=== PATIENT | male | born 1975 | race Two or more races ===

== ENCOUNTER 2017-06-19 11:46 | Inpatient (IN) | payer OTHER ==
[~2017-06-19] VITALS: Ht 177.8 cm; Wt 85.2 kg
[2017-06-19] MEDS ORDERED: SODIUM CHLORIDE FLUSH 10ML SYR IVF ONE (12:30)
[2017-06-19] MEDS ORDERED: LORazepam 2 MG/ML, 1ML IVPush ONE (12:30)
[2017-06-19] MEDS ORDERED: ASPIRIN 81 MG TABLET CHEW PO ONE (12:30)
[2017-06-19] MEDS ORDERED: ASPIRIN 81 MG TABLET CHEW ONE (12:49)
[2017-06-19] MEDS ORDERED: LORazepam 2 MG/ML, 1ML ONE (12:50)
[2017-06-19 12:55] LABS: HEMATOCRIT 46.8 % (39.2-51.8); HEMOGLOBIN 15.8 g/dL (13.7-18.0); WHITE BLOOD COUNT 6.9 x10^3/uL (3.4-10)
[2017-06-19 13:03] LABS: BLOOD UREA NITROGEN 10 mg/dL (7-18)
[2017-06-19 13:08] LABS: IS PT STATUS REG ER OR PRE ER? YES
[2017-06-19] MEDS ORDERED: MORPHINE SULFATE 4 MG/ML, 1ML ONE (13:39)
[2017-06-19] MEDS ORDERED: METOCLOPRAMIDE 5 MG/ML, 2ML ONE (13:39)
[2017-06-19] MEDS ORDERED: NITROGLYCERIN OINT 2%, 1GM TP ONE ×2 (13:52→15:30)
[2017-06-19] MEDS ORDERED: BISACODYL 10 MG SUPP PR PRN (15:00)
[2017-06-19] MEDS ORDERED: ONDANSETRON 2MG/ML, 2ML IVPush PRN (15:00)
[2017-06-19] MEDS ORDERED: DOCUSATE 100 MG CAPSULE PO PRN (15:00)
[2017-06-19] MEDS ORDERED: ONDANSETRON ODT 4 MG PO PRN (15:00)
[2017-06-19] MEDS ORDERED: POLYETHYLENE GLYCOL 17 GM PACKET PO PRN (15:00)
[2017-06-19] MEDS ORDERED: morphine SULFATE 10 MG/ML, 1ML IVPush PRN (15:00)
[2017-06-19 15:34] LABS: IS PT STATUS REG ER OR PRE ER? YES
[2017-06-19 15:45] VITALS: BP 103/66
[2017-06-19] MEDS ORDERED: ENOXAPARIN 40 MG/0.4 ML SQ SCH (16:30)
[2017-06-19] MEDS: ASPIRIN 325 MG TABLET EC PO SCH (17:16)
[2017-06-19] MEDS ORDERED: ACETAMINOPHEN 325 MG TABLET PO PRN (19:30)
[2017-06-19 19:45] VITALS: BP 108/65
[2017-06-19 21:25] LABS: IS PT STATUS REG ER OR PRE ER? NO
[2017-06-20 01:38] VITALS: BP 102/67
[2017-06-20] MEDS: ASPIRIN 325 MG TABLET EC PO SCH (05:50)
[2017-06-20 08:30] VITALS: BP 98/89
[2017-06-20] MEDS ORDERED: REGADENOSON 0.4 MG/5 ML SYRINGE ONE (08:46)
[2017-06-20 09:09] VITALS: BP 113/70
[2017-06-20 13:25] VITALS: BP 114/63
== END 2017-06-20 15:19 | disposition home or self-care (01) | DRG 313 ==
LOC: ED 13:22 → EDIP 13:23 → ED 14:49 → 5SO 15:36
PROVIDERS: ADMIT Family Medicine; ATTEND Family Medicine
DX: R07.9 Chest pain, unspecified (principal); Z87.891 Personal history of nicotine dependence; Z83.3 Family history of diabetes mellitus
CPT/HCPCS: 36415; 71020; 78452; 80048; 80061; 82040; 83690; 83880; 84484; 85025; 85651; 86141; 93005; 93017; 93306; 96374; J1650; J2785; A9502; C9898; J2060